=== PATIENT | female | born 1945 | race Caucasian/White ===

== ENCOUNTER 2021-08-04 16:23 | Outpatient (CLI) | payer MEDICARE, SELFPAY ==
[2021-08-04 16:48] LABS: Basophils Absolute Auto 0.1 K/mm3 (0.0-0.1); Basophils Percent Auto 0.8 % (0.2-1.2); Eosinophils Absolute Auto 0.3 K/mm3 (0-0.3); Eosinophils Percent Auto 2.5 % (0-4.4); Hematocrit 32.5 % (37.0-47.0); Hemoglobin 9.7 g/dL (12.0-15.0); Immature Granulocyte Absolute 0.06 K/mm3 (0.00-0.031); Immature Granulocyte Percent A 0.6 % (0-0.5); Lymphocytes Absolute Auto 2.77 K/mm3 (0.9-3.2); Lymphocytes Percent Auto 26.1 % (18.3-44.2); Mean Corpuscular HGB Conc 29.8 g/dl (32-36); Mean Corpuscular Hemoglobin 29.5 pg (26-34); Mean Corpuscular Volume 98.8 fl (80-100); Mean Platelet Volume 9.7 fl (7.4-10.4); Monocytes Absolute Auto 0.8 K/mm3 (0.1-0.6); Monocytes Percent Auto 7.1 % (2.6-8.5); Neutrophils Absolute Auto 6.7 K/mm3 (1.3-6.7); Neutrophils Percent Auto 62.9 % (45.5-73.1); Platelet Count Result 254 k/mm3 (150-375); Red Blood Count 3.29 M/mm3 (4.2-5.4); Red Cell Distribution Width 15.4 % (11.5-14.5); White Blood Count 10.6 K/mm3 (4.5-10.0)
[2021-08-04 17:00] LABS: Alanine Aminotransferase 12 U/L (6-35); Albumin Level 4.3 g/dL (3.5-5.1); Alkaline Phosphatase 69 U/L (38-126); Aspartate Amino Transferase 22 U/L (14-36); Bilirubin,Total 0.1 mg/dL (0.2-1.3); Blood Urea Nitrogen 16 mg/dL (7-17); Calcium 8.6 mg/dL (8.4-10.2); Carbon Dioxide > 40 mmol/L (22-30); Chloride 96 mmol/L (98-107); Estimated Glomerular Filt Rate 54; Glucose 120 mg/dL (65-110); Lactate Dehydrogenase 264 U/L (313-618); Potassium 3.8 mmol/L (3.4-5.0); Sodium 138 mmol/L (137-145)
[2021-08-04 17:08] LABS: Anisocytosis 1+ (NORMAL); Hypochromasia 1+ (NORMAL); Platelet Estimate Adequate (Adequate); Stomatocytes 1+ (NORMAL)
[2021-08-04 17:13] LABS: Iron 76 ug/dL (37-170)
[2021-08-04 17:22] LABS: Percent Iron Saturation 20 % (20-50)
[2021-08-04 18:12] LABS: Folic Acid 15.4 ng/mL (2.76->20); Vitamin B12 > 1000.0 pg/mL (239-931)
[2021-08-07 14:52] LABS: Methylmalonic Acid 232 nmol/L (87-318)
== END 2021-08-04 16:24 | disposition home or self-care (01) ==
LOC: ANHLAB 16:29
PROVIDERS: PCP Internal Medicine; Visit Provider Internal Medicine Hematology & Oncology
DX: D64.9 Anemia, unspecified (principal)
CPT/HCPCS: 36415; 80053; 82607; 82728; 82746; 83540; 83550; 83615; 83921; 85025

== ENCOUNTER 2022-05-22 13:30 | Outpatient (RCR) | payer MEDICARE, SELFPAY ==
[2022-01-23 15:00] VITALS: PULSE 78
== END 2022-05-22 14:33 | disposition home or self-care (01) ==
LOC: ANHCPREHAB 13:30
PROVIDERS: PCP Internal Medicine; Visit Provider Student in an Organized Health Care Education/Training Program
DX: J44.9 Chronic obstructive pulmonary disease, unspecified (principal)
CPT/HCPCS: 94625

== ENCOUNTER 2022-06-05 12:22 | Outpatient (CLI) | payer MEDICARE, SELFPAY ==
--- NOTE | 2022-06-05 16:53 | WPDSIXMINUTE ---
Six Minute Walk Procedure Procedure Performed Pulmonary Stress Test (6 min walk) Six Minute Walk Six Minute Walk: This is a 6 minute walk test. The test was performed and interpreted in accordance with the 2014 ERS/ATS task force guidelines. Of note this test was performed on 3 L nasal cannula. Findings: The patient's resting 3 L NC oxygen saturation measured by pulse oximetry was 95% and heart rate was 80 bpm. Patient ambulated for 305 meters and oxygen saturation remained 90 to 98%. Heart rate at the end of the study was 101 bpm. There are no prior studies for comparison.
== END 2022-06-05 12:23 | disposition home or self-care (01) ==
LOC: ANHPFT 12:24
PROVIDERS: PCP Internal Medicine; Visit Provider Student in an Organized Health Care Education/Training Program
DX: J44.9 Chronic obstructive pulmonary disease, unspecified (principal)
CPT/HCPCS: 94618

== ENCOUNTER 2022-11-19 15:40 | Emergency (ER) | payer MEDICARE, SELFPAY ==
[2022-11-19 16:05] VITALS: BP 125/67; PULSE 80; RESP 20; TEMP 37.3; O2SAT 93
--- NOTE | 2022-11-19 18:45 | ED.EAR ---
HPI - Ear Problem General Chief complaint: Ear Stated complaint: both ears clogged Time Seen by Provider: 11/19/22 16:45 Source: patient, family, RN notes reviewed and old records reviewed Mode of arrival: ambulatory Limitations: no limitations History of Present Illness HPI Narrative: 77 year old female accompanied by daughter with complaints of bilateral ears being clogged and decreased hearing for one week duration. Patient reports that she has had to have her ears cleaned out before due to wax build up and she would like them cleaned today if needed, reports no pain to her ears or and drainage from her ears. MD Complaint: decreased hearing and other (ears feel clogged) Location: bilateral Duration: constant Discharge from ear: Reports no Treatment prior to arrival: none Related Data Home Medications Medication Instructions Recorded Confirmed aspirin 81 mg tablet,delayed 81 mg PO DAILY 02/28/19 11/19/22 release (Aspir-) albuterol sulfate 90 mcg/actuation 1 puff inhalation Q4H PRN 03/27/19 11/19/22 aerosol inhaler (Ventolin HFA) Shortness Of Breath Or Wheezing calcium carbonate 500 mg calcium 500 mg PO DAILY 03/27/19 11/19/22 (1,250 mg) tablet (Calcium 500) ferrous sulfate 325 mg (65 mg 325 mg PO BID 05/23/21 11/19/22 iron) tablet cholecalciferol (vitamin D3) 50 50 mcg PO DAILY 06/23/21 11/19/22 mcg (2,000 unit) capsule mecobalamin (vitamin B12) 1,000 1,000 mcg sublingual DAILY 06/16/22 11/19/22 mcg disintegrating tablet,sublingual zinc acetate 25 mg (zinc) capsule 50 mg PO DAILY 06/16/22 11/19/22 (Galzin) Allergies Allergy/AdvReac Type Severity Reaction Status Date / Time iohexol Allergy Mild Rash Verified 11/19/22 16:31 [From CONTRAST - CT, XRAY] levofloxacin Allergy Unknown SKIN BURN Verified 11/19/22 16:31 Review of Systems Review of Systems: CONSTITUTIONAL: Denies fever, chills, or sweats. EYES: Denies visual changes, redness, or discharge. ENT: Denies rhinorrhea, congestion, sore throat, or otalgia, reports decreased hearing and ears feel clogged. CARDIOVASCULAR: Denies chest pain, palpitations, or edema. RESPIRATORY: Denies cough or dyspnea, uses home oxygen GASTROINTESTINAL: Denies abdominal pain, nausea, vomiting, or diarrhea. GENITOURINARY: Denies dysuria or hematuria. SKIN: Denies rash or itching. MUSCULOSKELETAL: Denies back pain, joint pain, or myalgia. NEUROLOGIC: Denies headache, numbness, or weakness. PSYCHIATRIC: Denies anxiety or depression. All systems reviewed & are unremarkable except as noted in HPI and below PMFSH Past Medical History Medical History Anxiety COPD (chronic obstructive pulmonary disease) GERD (gastroesophageal reflux disease) Hypertension Hypothyroid Peripheral neuropathy Surgical History Surgical History Status post total knee replacement, left Family History Family History Mother Family history of osteoporosis, Onset Age: 72 Family history of arthritis Father Family history of hearing loss Social History Social History Smoking packs per day: 1.5 Smoking cigarettes per day: 30.0 Years smoked: 25 Smoking pack-years: 37.50 Smoking status: Former smoker Tobacco type: cigarettes Smoking end date: 03/22/01 Alcohol intake: never Substance use: never Substance use type: does not use Lack of Transportation: No Lack of Food: Never True Current Housing: I Have Housing Concerned About Future Housing: No Difficulty Paying Gas/Electric Bills: No Difficulty Paying for Meds: No Currently Unemployed: No Education: High School Diploma/GED Difficulty w/ Childcare or Family Care: No Comments At time of signature, agree with nursing past medical, surgical, social and family history.
== END 2022-11-19 17:45 | disposition home or self-care (01) ==
PROVIDERS: Emergency Provider Registered Nurse; PCP Family Medicine
DX: H61.23 Impacted cerumen, bilateral (principal); Z87.891 Personal history of nicotine dependence; J44.9 Chronic obstructive pulmonary disease, unspecified; K21.9 Gastro-esophageal reflux disease without esophagitis; I10 Essential (primary) hypertension; E03.9 Hypothyroidism, unspecified; G62.9 Polyneuropathy, unspecified; Z96.652 Presence of left artificial knee joint; Z79.82 Long term (current) use of aspirin
CPT/HCPCS: 69210; 99212; G0463

== ENCOUNTER 2025-01-15 12:56 | Outpatient (CLI) | payer MEDICARE, SELFPAY ==
--- NOTE | ~2025-01-15 | DEXA_ITS ---
Bone Density Report Name: BRII MASSEY Age: 79 Sex: Female Ethnicity: White Date of : 1945 Indication: osteopenia; height loss; hysterectomy; secondary osteoporosis; Referring Provider: ANNMARIE RIOS Study: Bone densitometry was performed. Exam Date: January 15, 2025 Accession number: [id number] Bone Density: Region BMD T-score Z-score Classification AP Spine(L1-L4) 1.012 -0.3 2.4 Normal Femoral Neck (Left) 0.619 -2.1 0.3 Osteopenia Total Hip (Left) 0.778 -1.3 0.8 Osteopenia Femoral Neck (Right) 0.687 -1.5 0.9 Osteopenia Total Hip (Right) 0.740 -1.7 0.5 Osteopenia Total Hip Mean 0.759 -1.5 0.7 Osteopenia World Health Organization criteria for BMD impression classify patients as: Normal (T-score at or above -1.0), Osteopenia (T-score between -1.0 and -2.5), or Osteoporosis (T-score at or below -2.5). 10-year Fracture Risk(1): Major Osteoporotic Fracture 16% Hip Fracture 4.8% Reported Risk Factors: [place] (), Neck BMD=0.619, BMI=28.7, secondary osteoporosis (1) FRAX(R) Version 3.08. Fracture probability calculated for an untreated patient. Fracture probability may be lower if the patient has received treatment. Previous Exams: Region Exam Age BMD T-score BMD Change BMD Change Date g/cm2 vs Baseline vs Previous AP Spine (L1-L4) 01/15/2025 79 1.012 -0.3 0.153 (17.8%)* 0.153 (17.8%)* 05/27/2016 71 0.859 -1.7 Total Hip(Left) 01/15/2025 79 0.778 -1.3 0.101 (14.9%)* 0.101 (14.9%)* 05/27/2016 71 0.677 -2.2 Total Hip(Right) 01/15/2025 79 0.740 -1.7 -0.016 (-2.1%) -0.016 (-2.1%) 05/27/2016 71 0.756 -1.5 *Denotes significance at 95% confidence level, LSC for AP Spine = 0.022 g/cm2, LSC for Total Hip = 0.027 g/cm2 Clinical Information Provided by Patient: Has secondary osteoporosis Has used the following medications: Vitamin D, Calcium Has the following medical conditions: Hysterectomy Patient maximum height was 63.0 Menopause Age: 43 No regular weight bearing exercise Drinks caffeinated beverages Onset of menses at age 12 Number of children 1 Impression: The patient has low bone mass, based on the Left Femoral Neck T-score. The patient has an estimated ten-year risk of hip fracture of 4.8% and an estimated ten-year risk of major fracture of 16%, based on the WHO FRAX algorithm. No significant bone loss was observed. Discussion: BONE DENSITY IS LOW AT ONE OR MORE SKELETAL SITES. THE PATIENT'S BMD AND CLINICAL RISK FACTORS CONTRIBUTE TO THIS PATIENT'S INCREASED RISK OF FRACTURE. This patient's lowest T-score is low at one or more skeletal sites. It meets the World Health Organization's (WHO) criteria for ?low bone mass? (T-score between -1.0 and -2.5). The patient's 10-year risk of hip fracture as calculated by FRAX exceeds the threshold where pharmacological therapy is recommended by the National Osteoporosis Foundation (NOF). However, all treatment decisions require clinical judgment and consideration of individual patient factors, including patient preferences, comorbidities, previous drug use, risk factors not captured in the FRAX model (e.g., frailty, falls, vitamin D deficiency, increased bone turnover, interval significant decline in bone density) and possible under or overestimation of fracture risk by FRAX. The patient should follow a healthful lifestyle (good nutrition with adequate calcium and vitamin D, and appropriate weight-bearing exercise). Follow-Up: Consider a repeat BMD and Vertebral Fracture Assessment (VFA) exam in 2 years or sooner if medically necessary, to reassess this patient's status. Reported by: BERTRAND on 01/15/2025 1:37:00 PM. Reviewed, dictated and finalized at location A.
--- OUTSIDE RECORDS SUMMARY | 2025-01-15 14:24 | XMS_ITS | Clinical Summary ---
[facility] Address [address] [address] Care Team Providers Care Health Education Specialist Name Role Phone Wilfredo De La Rosa MD Primary Care Provider [phone] Allergies Active Allergy Reactions Criticality Noted Date Comments Iodine Unknown 07/20/2014 Iohexol Rash Medium 04/06/2016 Levofloxacin Unknown 07/18/2014 Lisinopril Unknown 03/02/2016 Active Problems Problem Noted Date Diagnosed Date Iron deficiency anemia 08/04/2021 Family History Relation Name Status Comments Brother 1 Alive Brother 2 Brother 3 Daughter Alive Father Mother Sister 1 Alive Sister 2 Alive Social History Tobacco Use Types Packs/Day Years Used Date Smoking Tobacco: Former Smokeless Tobacco: Never Alcohol Use Standard Drinks/Week Comments Never 0 (1 standard drink = 0.6 oz pur e alcohol) Comments Unknown Sex and Gender Information Value Date Recorded Sex Assigned at Not on file Legal Sex Female 2:25 PM CDT Gender Identity Not on file Sexual Orientation Not on file Last Filed Vital Signs Vital Sign Reading Time Taken Comments Blood Pressure 141/55 08/04/2021 3:40 PM CDT Pulse 81 08/04/2021 3:40 PM CDT Temperature 36.4 C (97.5 F) 08/04/2021 3:40 PM CDT Respiratory Rate - - Oxygen Saturation 98% 08/04/2021 3:40 PM CDT Inhaled Oxygen Concentration - - Weight 71.7 kg (158 lb) 08/04/2021 3:40 PM CDT Height - - Body Mass Index - - Plan of Treatment Health Maintenance Due Date Last Done Comments ZOSTER VACCINE (1 of 2) 1993 OSTEOPOROSIS SCREENING 2008 RSV VACCINE (60+ or ) (1 - 1-dose 75+ series) 2018 DTAP/TDAP/TD VACCINES (2 - T d or Tdap) 08/17/2022 08/17/2012 INFLUENZA VACCINE (#1) 2024 01/13/2019 PNEUMOCOCCAL VACCINE 50+ YEARS Completed 1 04/04/2017, 02/25/2015, 03/22/2010, Additional [place] [address] MEDICARE [employer]IL[employer] Care Teams Health Education Specialist Relationship Specialty Start Date End Date Wilfredo De La Rosa MD [id number] [place] [address] PCP - General Internal Medicine 08/04/21
== END 2025-01-15 12:57 | disposition home or self-care (01) ==
LOC: ANHFOHIMG 12:57
PROVIDERS: PCP Family Medicine; Visit Provider Family Medicine
DX: M81.0 Age-related osteoporosis without current pathological fracture (principal); M85.852 Other specified disorders of bone density and structure, left thigh; M85.851 Other specified disorders of bone density and structure, right thigh
CPT/HCPCS: 77080